=== PATIENT | female | born 1940 | race African-American/Black ===

== ENCOUNTER → 2019-08-31 | Emergency (ER) | payer MEDICARE, OTHER ==
[~2019-08-31] VITALS: Ht 167.6 cm; Wt 74.4 kg
[2019-08-31 13:18] LABS: Basophils # (auto) 0.1 10 ^3/uL (0-0.2); Basophils % (auto) 0.6 % (0.0-2.0); Eosinophils # (auto) 0.1 10 ^3/uL (0-0.8); Hematocrit 46.2 % (36.0-46.0); Hemoglobin 15.4 g/dL (12.2-16.2); Lymphocytes # (auto) 1.6 10 ^3/uL (0.4-5.4); Lymphocytes % (auto) 16.5 % (10.0-50.0); Mean Corpuscular Hgb Conc. 33.3 g/dL (32.0-36.0); Mean Corpuscular Volume 90.2 fL (80.0-100.0); Monocytes # (auto) 0.6 10 ^3/uL (0-1.3); Monocytes % (auto) 5.7 % (0.0-12.0); Neutrophils # (auto) 7.4 10 ^3/uL (1.6-8.6); Neutrophils % (auto) 76.2 % (37.0-80.0); Nucleated Red Blood Cells % 0.1 %; Platelet Count (auto) 306 10^3/uL (140-450); Red Blood Cells 5.13 10^6/uL (4.0-5.20); Red Cell Distribution Width 14.5 % (11.8-14.3); White Blood Cell 9.7 10^3/uL (4.4-10.8)
[2019-08-31 13:40] LABS: Alanine Aminotransferase 21 U/L (13-56); Anion Gap 5 (5-15); Aspartate Aminotransferase 16 U/L (15-37); BUN/Creatinine Ratio 15.2; Blood Urea Nitrogen 14 mg/dL (7-18); Calcium 9.7 mg/dL (8.5-10.1); Carbon Dioxide 30 mmol/L (21-32); Chloride 106 mmol/L (98-107); GFR African American 76 mL/min; GFR Non-African American 63 mL/min; Glucose 91 mg/dL (74-106); Potassium 3.4 mmol/L (3.5-5.1); Sodium 141 mmol/L (136-145)
[2019-08-31 13:45] LABS: Alkaline Phosphatase 69 U/L (45-117); Bilirubin, Total 0.4 mg/dL (0.2-1.0)
[2019-08-31 16:00] VITALS: BP 164/79
== END | disposition home or self-care (01) ==
LOC: ER 10:55
DX: F07.81 Postconcussional syndrome (principal); E07.9 Disorder of thyroid, unspecified; F17.210 Nicotine dependence, cigarettes, uncomplicated
CPT/HCPCS: 36415; 70450; 80053; 84484; 85025; 93005

== ENCOUNTER 2020-05-18 11:43 | Inpatient (IN) | payer MEDICARE, OTHER ==
[~2020-05-18] VITALS: Ht 167.6 cm; Wt 81.0 kg
[2020-05-18 13:01] LABS: Basophils # (auto) 0.1 10 ^3/uL (0-0.2); Basophils % (auto) 0.9 % (0.0-2.0); Eosinophils # (auto) 0.2 10 ^3/uL (0-0.8); Eosinophils % (auto) 1.6 % (0.0-7.0); Hematocrit 40.4 % (36.0-46.0); Hemoglobin 14.3 g/dL (12.2-16.2); Lymphocytes # (auto) 1.7 10 ^3/uL (0.4-5.4); Lymphocytes % (auto) 18.7 % (10.0-50.0); Mean Corpuscular Hemoglobin 30.9 pg (28.0-32.0); Mean Corpuscular Hgb Conc. 35.5 g/dL (32.0-36.0); Mean Corpuscular Volume 87.1 fL (80.0-100.0); Monocytes # (auto) 0.6 10 ^3/uL (0-1.3); Neutrophils # (auto) 6.6 10 ^3/uL (1.6-8.6); Neutrophils % (auto) 71.8 % (37.0-80.0); Nucleated Red Blood Cells % 0.1 %; Platelet Count (auto) 271 10^3/uL (140-450); Red Blood Cells 4.64 10^6/uL (4.0-5.20); Red Cell Distribution Width 13.9 % (11.8-14.3); White Blood Cell 9.2 10^3/uL (4.4-10.8)
[2020-05-18 13:17] LABS: Albumin 3.6 g/dL (3.4-5.0); Anion Gap 8 (5-15); Blood Urea Nitrogen 16 mg/dL (7-18); Calcium 10.2 mg/dL (8.5-10.1); Carbon Dioxide 31 mmol/L (21-32); Chloride 102 mmol/L (98-107); Glucose 99 mg/dL (74-106); Potassium 3.1 mmol/L (3.5-5.1); Sodium 141 mmol/L (136-145)
[2020-05-18 13:21] LABS: Alanine Aminotransferase 22 U/L (13-56); Aspartate Aminotransferase 20 U/L (15-37); GFR African American 74 mL/min; GFR Non-African American 61 mL/min
[2020-05-18 13:22] LABS: INR 0.98 (0.9-1.15); Partial Thromboplastin Time 23.6 sec (23.0-31.2)
[2020-05-18 13:26] LABS: Alkaline Phosphatase 68 U/L (45-117); Bilirubin, Total 0.3 mg/dL (0.2-1.0); Total Protein 7.4 g/dL (6.4-8.2)
[2020-05-18] MEDS ORDERED: MORPHINE SULF INJ 2 MG/ML SYRINGE 1ML IV PRN ×2 (14:00)
[2020-05-18] MEDS ORDERED: SOD CHL 0.45% 1,000 ML IV ONE (14:00)
[2020-05-18] MEDS ORDERED: NITROGLYCERIN 0.4 MG SL TAB SL PRN (14:00)
[2020-05-18] MEDS ORDERED: ONDANSETRON HCL 4 MG/2 ML VIAL IV PRN (14:00)
[2020-05-18 14:49] LABS: Urine Amorphous Crystal FEW /hpf (None Seen); Urine Bacteria NONE SEEN /hpf (None Seen); Urine Blood Negative /uL (Negative); Urine WBC 2 /hpf (0 - 5)
[2020-05-18 17:36] VITALS: BP 167/78
[2020-05-18 17:47] VITALS: BP 167/78
[2020-05-18] MEDS: LABETALOL HCL 5 MG/ML 4ML SYRINGE IV PRN ×2 (17:57→22:39)
[2020-05-18 22:00] VITALS: BP 167/83
[2020-05-18] MEDS ORDERED: LORazepam 2MG/ML-1ML VIAL IV PRN (22:00)
[2020-05-19 05:42] VITALS: BP 131/64
[2020-05-19 07:39] LABS: Basophils # (auto) 0 10 ^3/uL (0-0.2); Basophils % (auto) 0.4 % (0.0-2.0); Eosinophils # (auto) 0.2 10 ^3/uL (0-0.8); Eosinophils % (auto) 1.5 % (0.0-7.0); Lymphocytes # (auto) 1.8 10 ^3/uL (0.4-5.4); Lymphocytes % (auto) 16.5 % (10.0-50.0); Mean Corpuscular Hgb Conc. 34.1 g/dL (32.0-36.0); Mean Corpuscular Volume 87.8 fL (80.0-100.0); Monocytes # (auto) 0.7 10 ^3/uL (0-1.3); Monocytes % (auto) 6.2 % (0.0-12.0); Neutrophils # (auto) 8.1 10 ^3/uL (1.6-8.6); Neutrophils % (auto) 75.4 % (37.0-80.0); Platelet Count (auto) 287 10^3/uL (140-450); Red Blood Cells 4.67 10^6/uL (4.0-5.20); Red Cell Distribution Width 13.8 % (11.8-14.3); White Blood Cell 10.7 10^3/uL (4.4-10.8)
[2020-05-19 08:00] VITALS: BP 165/91
[2020-05-19 08:03] LABS: Chloride 105 mmol/L (98-107); Potassium 3.3 mmol/L (3.5-5.1); Sodium 142 mmol/L (136-145)
[2020-05-19 08:14] LABS: Alanine Aminotransferase 20 U/L (13-56); Albumin 3.5 g/dL (3.4-5.0); Alkaline Phosphatase 71 U/L (45-117); Anion Gap 9 (5-15); Aspartate Aminotransferase 18 U/L (15-37); BUN/Creatinine Ratio 17.2; Bilirubin, Total 0.5 mg/dL (0.2-1.0); Blood Urea Nitrogen 16 mg/dL (7-18); Calcium 9.9 mg/dL (8.5-10.1); Carbon Dioxide 28 mmol/L (21-32); GFR African American 75 mL/min; GFR Non-African American 62 mL/min; Glucose 98 mg/dL (74-106); Total Protein 6.9 g/dL (6.4-8.2)
[2020-05-19] MEDS ORDERED: POTASSIUM CHLORIDE 40 MEQ, LIDOCAINE 1% (LOCAL ANESTH.) 4 ML in SODIUM CHL 0.9% 250 ML IV ONE (08:30)
[2020-05-19] MEDS: amLODIPine BESYLATE 5 MG TAB PO SCH (08:51)
[2020-05-19] MEDS: HCTZ 25 MG TAB PO SCH (08:51)
[2020-05-19] MEDS: LISINOPRIL 20 MG TAB PO SCH (08:52)
[2020-05-19 09:00] VITALS: BP 136/91
[2020-05-19 09:12] LABS: Folate (Folic Acid) > 24.00 ng/mL (5.38-24)
[2020-05-19 13:00] VITALS: BP 138/72
[2020-05-19 17:00] VITALS: BP 114/63
[2020-05-19 17:40] LABS: Cholesterol 208 mg/dL (< 200); HDL Cholesterol 58 mg/dL (40-59); LDL Cholesterol 130 mg/dL (< 100); Triglycerides 143 mg/dL (< 150)
[2020-05-19] MEDS: ATORVASTATIN 20 MG TAB PO SCH (21:02)
[2020-05-19 22:00] VITALS: BP 95/49
[2020-05-20 05:00] VITALS: BP 118/52
[2020-05-20] MEDS: LEVOTHYROXINE SODIUM 88 MCG TAB PO SCH (05:50)
[2020-05-20 07:11] LABS: BUN/Creatinine Ratio 22.1; Calcium 9.1 mg/dL (8.5-10.1); Potassium 3.2 mmol/L (3.5-5.1)
[2020-05-20 08:15] VITALS: BP 110/56
[2020-05-20 09:00] VITALS: BP 110/56
[2020-05-20] MEDS ORDERED: POTASSIUM CHL 20 Meq TABLET PO ONE (10:15)
[2020-05-20] MEDS ORDERED: POTASSIUM CHLORIDE 40 MEQ, LIDOCAINE 1% (LOCAL ANESTH.) 4 ML in SODIUM CHL 0.9% 250 ML IV ONE (10:15)
[2020-05-20] MEDS: ASPirin-EC 81 mg tab PO SCH (10:17)
[2020-05-20] MEDS: HCTZ 25 MG TAB PO SCH (10:17)
[2020-05-20] MEDS: CLOPIDOGREL BISULFATE 75 MG TAB PO SCH (10:18)
[2020-05-20] MEDS: LISINOPRIL 20 MG TAB PO SCH (10:18)
[2020-05-20] MEDS: amLODIPine BESYLATE 5 MG TAB PO SCH (10:18)
[2020-05-20 13:00] VITALS: BP 129/69
[2020-05-20 17:00] VITALS: BP 116/94
[2020-05-20 22:00] VITALS: BP 104/42
[2020-05-20] MEDS: POTASSIUM CHL 20 Meq TABLET PO SCH (23:41)
[2020-05-20] MEDS: ATORVASTATIN 20 MG TAB PO SCH (23:41)
[2020-05-21] VITALS (7 sets, daily range): BP systolic 106–134; BP diastolic 49–82
[2020-05-21] MEDS: LEVOTHYROXINE SODIUM 88 MCG TAB PO SCH (06:39)
[2020-05-21 07:28] LABS: Calcium 8.4 mg/dL (8.5-10.1)
[2020-05-21 07:29] LABS: BUN/Creatinine Ratio 24.2
[2020-05-21] MEDS: ASPirin-EC 81 mg tab PO SCH (09:51)
[2020-05-21] MEDS: amLODIPine BESYLATE 5 MG TAB PO SCH (09:52)
[2020-05-21] MEDS: CLOPIDOGREL BISULFATE 75 MG TAB PO SCH (09:52)
[2020-05-21] MEDS: LISINOPRIL 20 MG TAB PO SCH (09:52)
[2020-05-21] MEDS: POTASSIUM CHL 20 Meq TABLET PO SCH ×2 (09:52→21:02)
[2020-05-21] MEDS: HCTZ 25 MG TAB PO SCH (09:52)
[2020-05-21] MEDS ORDERED: diphenhdrAMINE HCL 25 MG CAP PO ONE (20:15)
[2020-05-21] MEDS: ATORVASTATIN 20 MG TAB PO SCH (21:01)
[2020-05-22 05:00] VITALS: BP 121/59
[2020-05-22] MEDS: LEVOTHYROXINE SODIUM 88 MCG TAB PO SCH (06:12)
[2020-05-22] MEDS ORDERED: ADENOSINE 66 MG in GIVE UN-DILUTED 0 ML IV STA (08:21)
[2020-05-22 08:42] VITALS: BP 127/64
[2020-05-22 09:00] VITALS: BP 139/80
[2020-05-22] MEDS: amLODIPine BESYLATE 5 MG TAB PO SCH (10:02)
[2020-05-22] MEDS: CLOPIDOGREL BISULFATE 75 MG TAB PO SCH (10:02)
[2020-05-22] MEDS: HCTZ 25 MG TAB PO SCH (10:02)
[2020-05-22] MEDS: POTASSIUM CHL 20 Meq TABLET PO SCH ×2 (10:03→21:29)
[2020-05-22] MEDS: LISINOPRIL 20 MG TAB PO SCH (10:03)
[2020-05-22] MEDS: ASPirin-EC 81 mg tab PO SCH (10:04)
[2020-05-22] MEDS: PANTOPRAZOLE 40 MG TAB PO SCH ×2 (10:51→21:29)
[2020-05-22] MEDS: diphenhdrAMINE HCL 25 MG CAP PO PRN ×2 (10:51→21:29)
[2020-05-22 13:00] VITALS: BP 97/60
[2020-05-22 17:00] VITALS: BP 117/60
[2020-05-22] MEDS: ATORVASTATIN 20 MG TAB PO SCH (21:29)
[2020-05-22 22:00] VITALS: BP 106/45
[2020-05-23 05:00] VITALS: BP 118/54
[2020-05-23] MEDS: LEVOTHYROXINE SODIUM 88 MCG TAB PO SCH (06:26)
[2020-05-23 08:11] LABS: Potassium 4.6 mmol/L (3.5-5.1)
[2020-05-23 08:22] LABS: BUN/Creatinine Ratio 19.7; Calcium 9.2 mg/dL (8.5-10.1)
[2020-05-23 08:30] VITALS: BP 146/69
[2020-05-23] MEDS: amLODIPine BESYLATE 5 MG TAB PO SCH (09:30)
[2020-05-23] MEDS: LISINOPRIL 20 MG TAB PO SCH (09:30)
[2020-05-23] MEDS: HCTZ 25 MG TAB PO SCH (09:30)
[2020-05-23] MEDS: ASPirin-EC 81 mg tab PO SCH (09:30)
[2020-05-23] MEDS: PANTOPRAZOLE 40 MG TAB PO SCH (09:30)
[2020-05-23] MEDS: POTASSIUM CHL 20 Meq TABLET PO SCH (09:31)
[2020-05-23] MEDS: CLOPIDOGREL BISULFATE 75 MG TAB PO SCH (09:31)
[2020-05-23] MEDS: diphenhdrAMINE HCL 25 MG CAP PO PRN (09:34)
== END 2020-05-23 11:48 | disposition home or self-care (01) | DRG 64 ==
LOC: ER 11:43 → TELE 11:44 → TELE-CENTR 17:42
PROVIDERS: ADMIT Internal Medicine; ATTEND Internal Medicine
DX: I63.9 Cerebral infarction, unspecified (principal); G93.41 Metabolic encephalopathy; I16.1 Hypertensive emergency; N17.9 Acute kidney failure, unspecified; G45.9 Transient cerebral ischemic attack, unspecified; E87.6 Hypokalemia; R26.9 Unspecified abnormalities of gait and mobility; G89.29 Other chronic pain; Z20.822 Contact with and (suspected) exposure to COVID-19; E03.9 Hypothyroidism, unspecified; E78.5 Hyperlipidemia, unspecified; F17.210 Nicotine dependence, cigarettes, uncomplicated; Z79.82 Long term (current) use of aspirin; Z79.899 Other long term (current) drug therapy; Z82.49 Family history of ischemic heart disease and other diseases of the circulatory system; Z90.710 Acquired absence of both cervix and uterus; Z91.14 Patient's other noncompliance with medication regimen; Z91.19 Patient's noncompliance with other medical treatment and regimen; Z90.49 Acquired absence of other specified parts of digestive tract; Z88.0 Allergy status to penicillin; Z88.2 Allergy status to sulfonamides; Z88.6 Allergy status to analgesic agent; Z88.8 Allergy status to other drugs, medicaments and biological substances; Z88.5 Allergy status to narcotic agent
CPT/HCPCS: 36415; 70450; 70551; 71045; 78452; 80048; 80053; 80061; 81001; 82607; 82746; 83735; 83880; 84443; 84484; 85025; 85610; 85730; 87426; 93005; 93017; 93306; 93886; 95819; 96365; 97110; 97116; 97530; G0378; J0153; J2001; J3490

== ENCOUNTER 2020-05-27 03:05 | Inpatient (IN) | payer MEDICARE, OTHER ==
[~2020-05-27] VITALS: Ht 170.2 cm; Wt 76.0 kg
[2020-05-27] MEDS ORDERED: diphenhdrAMINE HCL 50 MG/1 ML VL IV ONE (03:15)
[2020-05-27] MEDS ORDERED: ALBUTEROL SULF 2.5 MG/0.5ML(0.5%) NEB SOLN NEB ONE (03:15)
[2020-05-27] MEDS ORDERED: methylPREDNISolone SOD SUCC 125 MG/2 ML VL IV ONE (03:15)
[2020-05-27 05:12] LABS: Urine Bacteria FEW /hpf (None Seen); Urine Blood Negative /uL (Negative); Urine Mucus FEW (None Seen); Urine Specific Gravity 1.006 (1.001-1.035); Urine WBC 1 /hpf (0 - 5)
[2020-05-27] MEDS ORDERED: diphenhdrAMINE HCL 50 MG/1 ML VL IV PRN (07:00)
[2020-05-27] MEDS ORDERED: ONDANSETRON HCL 4 MG/2 ML VIAL IV PRN (07:45)
[2020-05-27] MEDS ORDERED: MORPHINE SULF INJ 2 MG/ML SYRINGE 1ML IV PRN (07:45)
[2020-05-27] MEDS ORDERED: NITROGLYCERIN 0.4 MG SL TAB SL PRN (07:45)
[2020-05-27] MEDS ORDERED: hydrALAZINE HCL 20 MG/ML VL IV PRN (07:45)
[2020-05-27] MEDS ORDERED: MORPHINE SULFATE 4 MG/ML SYR/VIAL IV PRN (07:45)
[2020-05-27 07:57] LABS: Basophils # (auto) 0 10 ^3/uL (0-0.2); Basophils % (auto) 0.3 % (0.0-2.0); Eosinophils # (auto) 0.1 10 ^3/uL (0-0.8); Eosinophils % (auto) 0.5 % (0.0-7.0); Hematocrit 40.6 % (36.0-46.0); Hemoglobin 13.8 g/dL (12.2-16.2); Lymphocytes # (auto) 0.8 10 ^3/uL (0.4-5.4); Lymphocytes % (auto) 6.2 % (10.0-50.0); Mean Corpuscular Hemoglobin 30.6 pg (28.0-32.0); Mean Corpuscular Hgb Conc. 34.1 g/dL (32.0-36.0); Mean Corpuscular Volume 89.9 fL (80.0-100.0); Monocytes # (auto) 0.2 10 ^3/uL (0-1.3); Monocytes % (auto) 1.5 % (0.0-12.0); Neutrophils # (auto) 11.7 10 ^3/uL (1.6-8.6); Neutrophils % (auto) 91.5 % (37.0-80.0); Platelet Count (auto) 306 10^3/uL (140-450); Red Blood Cells 4.52 10^6/uL (4.0-5.20); Red Cell Distribution Width 14.2 % (11.8-14.3); White Blood Cell 12.7 10^3/uL (4.4-10.8)
[2020-05-27] MEDS: SODIUM CHLORIDE 0.9% 1,000 ML IV SCH ×2 (08:20→21:50)
[2020-05-27 08:21] LABS: Alanine Aminotransferase 22 U/L (13-56); Anion Gap 8 (5-15); Aspartate Aminotransferase 19 U/L (15-37); BUN/Creatinine Ratio 19.4; Blood Urea Nitrogen 18 mg/dL (7-18); Calcium 9.3 mg/dL (8.5-10.1); Carbon Dioxide 23 mmol/L (21-32); Chloride 107 mmol/L (98-107); GFR African American 75 mL/min; GFR Non-African American 62 mL/min; Glucose 109 mg/dL (74-106); INR 1.01 (0.9-1.15); Magnesium 2.3 mg/dL (1.6-2.6); Partial Thromboplastin Time 24.8 sec (23.0-31.2); Potassium 3.7 mmol/L (3.5-5.1); Sodium 138 mmol/L (136-145)
[2020-05-27 08:26] LABS: Alkaline Phosphatase 66 U/L (45-117); Bilirubin, Total 0.4 mg/dL (0.2-1.0); Total Protein 7.3 g/dL (6.4-8.2)
[2020-05-27] MEDS ORDERED: FAMOTIDINE (10MG/ML) 2ML VL IV SCH (10:00)
[2020-05-27] MEDS: methylPREDNISolone SOD SUCC 40 MG/ML VL IV SCH ×2 (10:15→21:50)
[2020-05-27 17:00] VITALS: BP 159/74
[2020-05-27] MEDS ORDERED: ASPI-231 PO (17:13)
[2020-05-27] MEDS ORDERED: MULT-691 PO (17:13)
[2020-05-27] MEDS ORDERED: CALC500C71 PO (17:13)
[2020-05-27] MEDS ORDERED: POTA99TA5 PO (17:13)
[2020-05-27] MEDS ORDERED: HYDR12.56 PO (17:13)
[2020-05-27 21:27] VITALS: BP 153/69
[2020-05-28 05:02] VITALS: BP 127/58
[2020-05-28 06:17] LABS: Basophils # (auto) 0 10 ^3/uL (0-0.2); Basophils % (auto) 0.1 % (0.0-2.0); Eosinophils # (auto) 0 10 ^3/uL (0-0.8); Hematocrit 37.9 % (36.0-46.0); Hemoglobin 13.1 g/dL (12.2-16.2); Lymphocytes # (auto) 0.8 10 ^3/uL (0.4-5.4); Mean Corpuscular Hemoglobin 30.3 pg (28.0-32.0); Mean Corpuscular Hgb Conc. 34.7 g/dL (32.0-36.0); Mean Corpuscular Volume 87.3 fL (80.0-100.0); Monocytes # (auto) 0.4 10 ^3/uL (0-1.3); Monocytes % (auto) 3.5 % (0.0-12.0); Neutrophils # (auto) 9.3 10 ^3/uL (1.6-8.6); Neutrophils % (auto) 88.4 % (37.0-80.0); Platelet Count (auto) 304 10^3/uL (140-450); Red Blood Cells 4.34 10^6/uL (4.0-5.20); White Blood Cell 10.5 10^3/uL (4.4-10.8)
[2020-05-28 06:29] LABS: Albumin 3.6 g/dL (3.4-5.0); Potassium 3.6 mmol/L (3.5-5.1)
[2020-05-28 06:35] LABS: Bilirubin, Total 0.3 mg/dL (0.2-1.0); Calcium 9.8 mg/dL (8.5-10.1); Total Protein 6.9 g/dL (6.4-8.2)
[2020-05-28] MEDS ORDERED: LEVO88TA4 PO (07:26)
[2020-05-28 08:15] VITALS: BP 119/69
[2020-05-28 09:25] VITALS: BP 155/80
[2020-05-28] MEDS ORDERED: FAMOTIDINE (10MG/ML) 2ML VL IV SCH (10:00)
[2020-05-28] MEDS: methylPREDNISolone SOD SUCC 40 MG/ML VL IV SCH (10:42)
[2020-05-28 13:02] VITALS: BP 147/69
[2020-05-28 16:26] VITALS: BP 145/69
[2020-05-28 16:57] VITALS: BP 157/71
[2020-05-28] MEDS: SODIUM CHLORIDE 0.9% 1,000 ML IV SCH (17:05)
== END 2020-05-28 17:47 | disposition home or self-care (01) | DRG 607 ==
LOC: ER 03:05 → TELE 03:06 → TELE-CENTR 14:16
PROVIDERS: ADMIT Nurse Practitioner Family; ATTEND Nurse Practitioner Family
DX: R22.9 Localized swelling, mass and lump, unspecified (principal); Q31.3 Laryngocele; Z20.822 Contact with and (suspected) exposure to COVID-19; T46.4X5A Adverse effect of angiotensin-converting-enzyme inhibitors, initial encounter; T50.2X5A Adverse effect of carbonic-anhydrase inhibitors, benzothiadiazides and other diuretics, initial encounter; E89.0 Postprocedural hypothyroidism; F17.210 Nicotine dependence, cigarettes, uncomplicated; I10 Essential (primary) hypertension; J43.2 Centrilobular emphysema; Y92.89 Other specified places as the place of occurrence of the external cause; Z82.49 Family history of ischemic heart disease and other diseases of the circulatory system; Z90.710 Acquired absence of both cervix and uterus; Z88.8 Allergy status to other drugs, medicaments and biological substances; Z88.2 Allergy status to sulfonamides; Z88.5 Allergy status to narcotic agent; Z88.0 Allergy status to penicillin; Z90.49 Acquired absence of other specified parts of digestive tract
CPT/HCPCS: 36415; 70490; 71045; 76536; 80053; 81001; 83735; 83880; 84443; 84484; 85025; 85379; 85610; 85730; 87081; 87426; 93005; 96374; 96375; G0378; J3490

== ENCOUNTER 2023-06-10 18:38 | Inpatient (IN) | payer MEDICARE, OTHER ==
[~2023-06-10] VITALS: Ht 168.9 cm; Wt 82.3 kg
[~2023-06-10 18:38] MED LIST: ASPI1TAB20 PO; CALC500C71 PO; HYDR12.59 PO; LEVO88TA4 PO; MULT-691 PO; POTA99TA5 PO
[2023-06-10 20:30] LABS: Basophils # (auto) 0.1 10 ^3/uL (0-0.2); Basophils % (auto) 0.6 % (0.0-2.0); Eosinophils # (auto) 0.2 10 ^3/uL (0-0.8); Eosinophils % (auto) 1.4 % (0.0-7.0); Hematocrit 43.4 % (36.0-46.0); Hemoglobin 14.5 g/dL (12.2-16.2); Lymphocytes # (auto) 1.9 10 ^3/uL (0.4-5.4); Mean Corpuscular Hemoglobin 29.4 pg (28.0-32.0); Mean Corpuscular Hgb Conc. 33.4 g/dL (32.0-36.0); Monocytes # (auto) 0.8 10 ^3/uL (0-1.3); Monocytes % (auto) 6.8 % (0.0-12.0); Neutrophils # (auto) 8.3 10 ^3/uL (1.6-8.6); Neutrophils % (auto) 74.2 % (37.0-80.0); Nucleated Red Blood Cells % 0.1 %; Red Blood Cells 4.93 10^6/uL (4.0-5.20); Red Cell Distribution Width 14.8 % (11.8-14.3); White Blood Cell 11.2 10^3/uL (4.4-10.8)
[2023-06-10 20:36] LABS: Chloride 111 mmol/L (98-107); Potassium 4.1 mmol/L (3.5-5.1); Sodium 144 mmol/L (136-145)
[2023-06-10 20:37] LABS: Anion Gap 6 (5-15); Carbon Dioxide 27 mmol/L (20-30)
[2023-06-10 20:42] LABS: BUN/Creatinine Ratio 16.5 (10.0-20.0); Blood Urea Nitrogen 13 mg/dL (9-23); Glucose 99 mg/dL (74-106)
[2023-06-10 20:52] LABS: INR 1.02 (0.9-1.15); Partial Thromboplastin Time 27.4 SEC (24.5-34.5); Prothrombin Time 10.7 sec (9.3-11.8)
[2023-06-10] MEDS ORDERED: ONDANSETRON HCL 4 MG/2 ML VIAL IV PRN (21:30)
[2023-06-10] MEDS ORDERED: NITROGLYCERIN 0.4 MG SL TAB SL PRN (21:30)
[2023-06-10] MEDS: NITROGLYCERIN 2% OINT 1GM PKG TD ONE (22:47)
[2023-06-10] MEDS: ACETAMINOPHEN 500 MG TAB PO ONE (22:47)
[2023-06-10] MEDS: ATORVASTATIN 20 MG TAB PO SCH (23:21)
[2023-06-10] MEDS: METOPROLOL TARTRATE 25 MG TAB PO SCH (23:22)
[2023-06-11] VITALS (10 sets, daily range): BP systolic 113–162; BP diastolic 41–75; PULSE 65–95; RESP 16–20; TEMP 97.6–98; O2SAT 92–98
[2023-06-11] MEDS: ACETAMINOPHEN 325 MG TAB PO PRN (00:24)
[2023-06-11] MEDS: hydrALAZINE HCL 20 MG/ML VL IV PRN (04:33)
[2023-06-11 05:15] LABS: Chloride 112 mmol/L (98-107); Potassium 3.3 mmol/L (3.5-5.1); Sodium 140 mmol/L (136-145)
[2023-06-11 05:16] LABS: Anion Gap 4 (5-15); Calcium 10.3 mg/dL (8.7-10.4); Carbon Dioxide 24 mmol/L (20-30)
[2023-06-11 05:21] LABS: BUN/Creatinine Ratio 10.7 (10.0-20.0); Blood Urea Nitrogen 8 mg/dL (9-23); Glucose 99 mg/dL (74-106)
[2023-06-11] MEDS ORDERED: OYST500T28 PO (05:29)
[2023-06-11] MEDS ORDERED: LEVO88TA2 PO (05:29)
[2023-06-11 05:35] LABS: Basophils # (auto) 0.1 10 ^3/uL (0-0.2); Basophils % (auto) 0.5 % (0.0-2.0); Eosinophils # (auto) 0.2 10 ^3/uL (0-0.8); Hematocrit 43.9 % (36.0-46.0); Hemoglobin 14.6 g/dL (12.2-16.2); Lymphocytes # (auto) 2.2 10 ^3/uL (0.4-5.4); Lymphocytes % (auto) 19.6 % (10.0-50.0); Mean Corpuscular Hemoglobin 29.5 pg (28.0-32.0); Mean Corpuscular Hgb Conc. 33.3 g/dL (32.0-36.0); Mean Corpuscular Volume 88.6 fL (80.0-100.0); Monocytes # (auto) 0.8 10 ^3/uL (0-1.3); Monocytes % (auto) 7.5 % (0.0-12.0); Neutrophils # (auto) 7.9 10 ^3/uL (1.6-8.6); Neutrophils % (auto) 70.4 % (37.0-80.0); Red Blood Cells 4.96 10^6/uL (4.0-5.20); Red Cell Distribution Width 14.7 % (11.8-14.3); White Blood Cell 11.2 10^3/uL (4.4-10.8)
[2023-06-11] MEDS: LEVOTHYROXINE SODIUM 88 MCG TAB PO SCH (05:43)
[2023-06-11] MEDS: TRIAMTERENE/HCTZ 37.5/25 MG CAP/TAB PO SCH (09:24)
[2023-06-11] MEDS: amLODIPine BESYLATE 5 MG TAB PO SCH (09:26)
[2023-06-11] MEDS: CLOPIDOGREL BISULFATE 75 MG TAB PO SCH (09:26)
[2023-06-11] MEDS: ENOXAPARIN SOD 40 MG/0.4 ML SYRINGE SC SCH (09:26)
[2023-06-11 11:08] LABS: Urine Bacteria None Seen /hpf (None Seen); Urine WBC None Seen /hpf (0 - 5)
[2023-06-11 11:42] LABS: Urine Blood Negative /uL (Negative); Urine Clarity Clear (Clear); Urine Color Colorless (Yellow); Urine Protein, UAD Negative (Negative); Urine Specific Gravity 1.006 (1.001-1.035); Urine Urobilinogen Normal (Negative)
[2023-06-11] MEDS: METOPROLOL TARTRATE 25 MG TAB PO SCH (14:36)
[2023-06-11] MEDS: POTASSIUM CHL 20 Meq TABLET PO ONE (17:23)
[2023-06-12] VITALS (7 sets, daily range): BP systolic 101–157; BP diastolic 47–65; PULSE 74–85; RESP 16–22; TEMP 36.7; O2SAT 92–100
[2023-06-12] MEDS: LISINOPRIL 20 MG TAB PO SCH (09:43)
[2023-06-12] MEDS ORDERED: METO-158 PO (11:55)
[2023-06-12] MEDS ORDERED: LISI20TA56 PO (11:55)
== END 2023-06-12 17:57 | disposition home or self-care (01) | DRG 305 ==
LOC: ER 18:38 → TELE 21:42 → TELE-WESTW 06-11 05:05
PROVIDERS: ADMIT Nurse Practitioner; ATTEND Family Medicine
DX: I16.1 Hypertensive emergency (principal); E78.5 Hyperlipidemia, unspecified; E89.0 Postprocedural hypothyroidism; Z88.0 Allergy status to penicillin; Z88.2 Allergy status to sulfonamides; Z88.5 Allergy status to narcotic agent; Z86.73 Personal history of transient ischemic attack (TIA), and cerebral infarction without residual deficits; Z90.710 Acquired absence of both cervix and uterus; Z79.899 Other long term (current) drug therapy; Z91.199 Patient's noncompliance with other medical treatment and regimen due to unspecified reason
CPT/HCPCS: 36415; 70450; 71045; 80048; 81001; 83880; 84484; 85025; 85610; 85730; 93005; G0378

== ENCOUNTER → 2023-07-16 | Outpatient (CLI) | payer MEDICARE, OTHER ==
[~2023-07-16] MED LIST changes: -ASPI1TAB20 PO; +LEVO88TA2 PO; +LISI20TA56 PO; +METO-158 PO; -MULT-691 PO; -POTA99TA5 PO
[2023-07-16 08:15] LABS: Basophils # (auto) 0.1 10 ^3/uL (0-0.2); Basophils % (auto) 0.6 % (0.0-2.0); Eosinophils # (auto) 0.3 10 ^3/uL (0-0.8); Eosinophils % (auto) 3.3 % (0.0-7.0); Hematocrit 41.2 % (36.0-46.0); Hemoglobin 13.8 g/dL (12.2-16.2); Lymphocytes # (auto) 1.8 10 ^3/uL (0.4-5.4); Lymphocytes % (auto) 19.1 % (10.0-50.0); Mean Corpuscular Hemoglobin 29.6 pg (28.0-32.0); Mean Corpuscular Hgb Conc. 33.6 g/dL (32.0-36.0); Mean Corpuscular Volume 88.3 fL (80.0-100.0); Monocytes # (auto) 0.7 10 ^3/uL (0-1.3); Monocytes % (auto) 7.9 % (0.0-12.0); Neutrophils # (auto) 6.4 10 ^3/uL (1.6-8.6); Neutrophils % (auto) 69.1 % (37.0-80.0); Nucleated Red Blood Cells % 0.1 %; Red Blood Cells 4.67 10^6/uL (4.0-5.20); Red Cell Distribution Width 14.7 % (11.8-14.3); White Blood Cell 9.2 10^3/uL (4.4-10.8)
[2023-07-16 08:23] LABS: Alanine Aminotransferase 12 U/L (7-40); Albumin 4.5 g/dL (3.2-4.8); Alkaline Phosphatase 71 U/L (46-116); Anion Gap 2 (5-15); Aspartate Aminotransferase 13 U/L (13-40); BUN/Creatinine Ratio 16.5 (10.0-20.0); Bilirubin, Total 0.4 mg/dL (0.2-1.0); Blood Urea Nitrogen 15 mg/dL (9-23); Calcium 10.4 mg/dL (8.5-10.1); Carbon Dioxide 27 mmol/L (20-30); Chloride 112 mmol/L (98-107); Glucose 96 mg/dL (74-106); Potassium 4.5 mmol/L (3.5-5.1); Sodium 141 mmol/L (136-145); Total Protein 6.8 g/dL (5.7-8.2)
== END | disposition home or self-care (01) ==
LOC: LAB 07:46
PROVIDERS: ATTEND Internal Medicine
DX: E87.6 Hypokalemia (principal); E83.52 Hypercalcemia; D72.829 Elevated white blood cell count, unspecified
CPT/HCPCS: 36415; 80053; 85025